=== PATIENT | male | born 1990 | race African-American/Black ===

== ENCOUNTER 2018-08-11 20:33 | Emergency (ER) | payer OTHER ==
[~2018-08-11] VITALS: Ht 172.7 cm; Wt 59.0 kg
[2018-08-11] MEDS ORDERED: ROBAXIN 750 MG750 MG PO (21:52)
[2018-08-11 22:42] VITALS: BP 108/76
== END 2018-08-11 22:43 | disposition home or self-care (01) ==
LOC: ER 20:33
DX: S13.4XXA Sprain of ligaments of cervical spine, initial encounter (principal); V49.88XA Car occupant (driver) (passenger) injured in other specified transport accidents, initial encounter; Y93.89 Activity, other specified; Y92.89 Other specified places as the place of occurrence of the external cause; Y99.8 Other external cause status